=== PATIENT | female | born 1950 | race Hispanic/Latino ===

== ENCOUNTER 2017-12-02 18:08 | Emergency (ER) | payer MEDICARE ==
[2017-12-02] MEDS ORDERED: Bacitracin 500 Units/gm Oint Foilpak UD TOP ONE (18:48)
[2017-12-02] MEDS ORDERED: Tdap Vaccine 0.5 ml Vial (10-64 yrs) IM ONE ×2 (18:48→18:56)
[2017-12-02] MEDS ORDERED: Bacitracin 500 Units/gm Oint Foilpak UD ONE (18:56)
--- NOTE | 2017-12-02 19:59 | ED PDOC ---
HPI: Headache Time Seen by Provider: 12/02/17 18:25 Chief Complaint (Nursing): Headache Chief Complaint (Provider): headache and back pain History Per: Patient History/Exam Limitations: no limitations Onset/Duration Of Symptoms: Sudden Onset (about 1 hour prior to arrival) Additional Complaint(s): trip and fall on gravelly sidewalk, landed on RIGHT side, reporting swelling and wounds to her RIGHT face and RIGHT hand. Denies LOC/Nause/vomiting/ weakness. Reporting pain to back, possible exacerbation of an already existing back condition. Denies urine or bowel incontinence or retention. Unsure of her last tetanus vaccine. PMD Dr Bentley Past Medical History Reviewed: Historical Data, Nursing Documentation, Vital Signs Vital Signs: Last Vital Signs Temp 98.2 F 12/02/17 18:12 Pulse 103 H 12/02/17 18:12 Resp 16 12/02/17 18:12 BP 153/67 H 12/02/17 18:12 Pulse Ox 97 12/02/17 18:12 - Medical History PMH: HTN, Hypercholesterolemia, Hypothyroidism - Surgical History Surgical History: Appendectomy, Tonsillectomy - Family History Family History: States: Unknown Family Hx - Social History Current smoker - smoking cessation education provided: No - Immunization History Hx Tetanus Toxoid Vaccination: No Hx Influenza Vaccination: No Hx Pneumococcal Vaccination: No - Home Medications Home Medications: Ambulatory Orders Medication Instructions Recorded [place] Thyroid 45 mg DAILY 02/18/14 Clindamycin [Cleocin] 300 mg PO QID 10 Days cap 07/21/15 Cephalexin [Keflex] 500 mg PO BID #14 capsule 01/29/16 Clindamycin [Cleocin] 300 mg PO TID #30 cap 01/29/16 Prednisone 40 mg PO DAILY #8 tablet 01/29/16 - Allergies Allergies/Adverse Reactions: Allergies Allergy/AdvReac Type Severity Reaction Status Date / Time nitrofurantoin Allergy SHORTNESS Verified 12/02/17 18:27 [From Macrobid] OF BREATH nitrofurantoin Allergy SHORTNESS Verified 12/02/17 18:27 macrocrystalline OF BREATH [From Macrobid] Penicillins Allergy RASH Verified 12/02/17 18:27 Sulfa (Sulfonamide Allergy REDNESS Verified 12/02/17 18:27 Antibiotics) Iodinated Contrast- Oral and AdvReac ANAPHYLAXIS Verified 12/02/17 18:27 IV Dye [Iodinated Contrast Media - IV Dye] Review of Systems ROS Statement: Except As Marked, All Systems Reviewed And Found Negative (and as per HPI) Musculoskeletal: Positive for: Back Pain, Hand Pain, Leg Pain Skin: Positive for: Lesions, Bruising Neurological: Positive for: Headache. Negative for: Weakness, Numbness Physical Exam - Reviewed Nursing Documentation Reviewed: Yes Vital Signs Reviewed: Yes - Physical Exam Appears: Positive for: Non-toxic, No Acute Distress Head Exam: Positive for: NORMOCEPHALIC (RIGHT periorbital superficial abrasions and edema) Skin: Positive for: Warm, Dry Eye Exam: Positive for: EOMI, PERRL ENT: Positive for: Pharynx Is (clear) Neck: Positive for: Painless ROM, Supple Gastrointestinal/Abdominal: Positive for: Soft. Negative for: Tenderness Back: Positive for: Normal Inspection, Other (RIGHT paraspinal thoracic and lumbar ttp). Negative for: Vertebral Tenderness, Decreased ROM Extremity: Positive for: Normal ROM, Other (RIGHT hand: superficial abrasion to ulnar side of hand, clean, FROM, no deformity). Negative for: Capillary Refill Lymphatic: Negative for: Adenopathy Neurologic/Psych: Positive for: Alert. Negative for: Motor/Sensory Deficits - ECG O2 Sat by Pulse Oximetry: 97 Pulse Ox Interpretation: Normal - Other Rad RIGHT hand X-Ray: Interpreted by Me (No fx/dislocation) Lumbar X-Ray: Interpreted by Me (No fx/dislocation) Thoracic X-Ray: Interpreted by Me (No fracture/dislocation) - Progress ED Course And Treament: EXAM: CT Head Without Intravenous Contrast EXAM DATE/TIME: 12/02/2017 6:41 PM CLINICAL HISTORY: 67 years old, female; Injury or trauma; Fall; Initial encounter; Concussion / head injury; Consciousness not specified TECHNIQUE: Axial computed tomography images of the head/brain without intravenous contrast. All CT scans at this facility use one or more dose reduction techniques, viz.: automated exposure control; ma/kV adjustment per patient size (including targeted exams where dose is matched to indication; i.e. head); or iterative reconstruction technique. Coronal and sagittal reformatted images provided and reviewed. COMPARISON: No relevant prior studies available. FINDINGS: Brain: No intracranial hemorrhage. There is global parenchymal volume loss. Periventricular hypoattenuation is likely due to small vessel disease. No evidence of evolved territorial infarct or cerebral edema. No mass effect or midline shift. Ventricles: Prominent ventricles secondary to volume loss. Bones/joints: No acute osseous abnormality. Soft tissues: Right periorbital soft tissue swelling. Sinuses: Visualized paranasal sinuses are clear. Mastoid air cells: Unremarkable as visualized. No mastoid effusion. IMPRESSION: No acute intracranial findings. Thank you for allowing us to participate in the care of your patient. Dictated and Authenticated by: Tera Ivan MD 12/02/2017 7:24 PM Eastern Time ([place] & [place]) EXAM: CT Maxillofacial Without Intravenous Contrast EXAM DATE/TIME: 12/02/2017 6:41 PM CLINICAL HISTORY: 67 years old, female; Injury or trauma; Fall; Initial encounter; Abrasion; Orbit /periorbital; Right; Injury date: 12-02-2017; Injury details: Tripped and fell; Additional info: Head injury TECHNIQUE: Axial computed tomography images of the face without intravenous contrast. All CT scans at this facility use one or more dose reduction techniques, viz.: automated exposure control; ma/kV adjustment per patient size (including targeted exams where dose is matched to indication; i.e. head); or iterative reconstruction technique. COMPARISON: No relevant prior studies available. FINDINGS: Bones/joints: No acute osseous abnormality. Soft tissues: Right periorbital soft tissue swelling. Orbits: Unremarkable. Sinuses: Unremarkable. No air-fluid levels. IMPRESSION: No fracture. Thank you for allowing us to participate in the care of your patient. Dictated and Authenticated by: Tera Ivan MD 12/02/2017 7:27 PM Eastern Time ([place] & [place]) Disposition - Clinical Impression Clinical Impression: Head injury, Multiple contusions, Abrasions of multiple sites Counseled Patient/Family Regarding: Studies Performed, Diagnosis, Need For Followup - Disposition Referrals: Alexa Bentley MD [Medical Doctor] - (FOLLOW UP WITH DR BENTLEY IN 24-48 HOURS FOR REEVALUATION) Disposition: Routine/Home Disposition Time: 20:01 Condition: STABLE Instructions: Minor Head Injury, Taking Care of Bruises, Skin Abrasions
[2017-12-02 20:42] VITALS: BP 137/66; PULSE 82; RESP 20; TEMP 97.6; O2SAT 98
--- NOTE | 2017-12-03 08:18 | RAD ---
HISTORY: head injury COMPARISON: No prior. FINDINGS: BONES: Alignment maintained. No fracture. DISC SPACES: Normal. SOFT TISSUES: Normal. OTHER FINDINGS: None. IMPRESSION: No acute findings related to/accounting for the clinical presentation. Concordant results with the preliminary interpretation rendered by the emergency department physician procedure.
--- NOTE | 2017-12-03 08:25 | RAD ---
PROCEDURE: Radiographs of the Lumbar Spine. One HISTORY: head injury COMPARISON: No prior. FINDINGS: BONES: Normal alignment. No listhesis. No fracture. DISC SPACES: Unremarkable. OTHER FINDINGS: None. IMPRESSION: Unremarkable radiographs of the lumbar spine. Concordant results with the preliminary interpretation rendered by the emergency department physician procedure.
--- NOTE | 2017-12-03 08:26 | RAD ---
PROCEDURE: Left Hand Radiographs. HISTORY: Unspecified hand injury COMPARISON: None. FINDINGS: BONES: Normal. No fracture. JOINTS: Normal. No osteoarthritic changes. SOFT TISSUES: Normal. OTHER FINDINGS: None. IMPRESSION: Normal left hand radiographs. Concordant results with the preliminary interpretation rendered by the emergency department physician procedure.
--- NOTE | 2017-12-03 08:32 | CT ---
PROCEDURE: CT HEAD WITHOUT CONTRAST. HISTORY: Head injury COMPARISON: None available. TECHNIQUE: Axial computed tomography images were obtained through the head/brain without intravenous contrast. Radiation dose: Total exam DLP = 781.54 mGy-cm. This CT exam was performed using one or more of the following dose reduction techniques: Automated exposure control, adjustment of the mA and/or kV according to patient size, and/or use of iterative reconstruction technique. FINDINGS: HEMORRHAGE: No intracranial hemorrhage. BRAIN: There are mild chronic microangiopathic changes. There is no mass, mass effect or abnormal extra-axial fluid collection. There is no territorial infarction. VENTRICLES: There is mild age-related global parenchymal volume loss and proportionate enlargement of the ventricles and cortical sulci. There is nonspecific prominence of bifrontal extra-axial CSF spaces. CALVARIUM: There is no calvarial fracture. There is mild left periorbital soft tissue swelling PARANASAL SINUSES: Predominantly clear. MASTOID AIR CELLS: Predominantly clear. OTHER FINDINGS: None. IMPRESSION: No acute intracranial abnormality. Mild left periorbital soft tissue swelling. Mild chronic microangiopathic changes and mild age-related global parenchymal volume loss. A preliminary report was provided by [facility] services.
--- NOTE | 2017-12-03 08:39 | CT ---
PROCEDURE: CT MAXILLOFACIAL BONES WITHOUT CONTRAST HISTORY: head injury COMPARISON: Rule TECHNIQUE: Contiguous axial CT images of the maxillofacial bones were obtained. Coronal and sagittal reformats were generated. Radiation dose: Total exam DLP = 721.31 mGy-cm. This CT exam was performed using one or more of the following dose reduction techniques: Automated exposure control, adjustment of the mA and/or kV according to patient size, and/or use of iterative reconstruction technique. FINDINGS: NASAL BONES: Unremarkable. ORBITS: Unremarkable. PARANASAL SINUSES/ MASTOIDS: Clear. MAXILLA: Unremarkable. MANDIBLE/ TEMPOROMANDIBULAR JOINTS: Unremarkable. SKULL BASE: Unremarkable. TEMPORAL BONES: Middle ears and mastoid grossly unremarkable. OTHER FINDINGS: None. IMPRESSION: No acute fracture or other significant pathologic process. Concordant results (preliminary interpretation) provided by [facility]. Procedure Completed: 19:03 Preliminary ([facility]) Report: Dictated and Authenticated: 19:27 Final Interpretation:
== END 2017-12-02 21:00 | disposition home or self-care (01) ==
LOC: H.ER 18:08
DX: S09.90XA Unspecified injury of head, initial encounter (principal); T14.8XXA Other injury of unspecified body region, initial encounter; W01.0XXA Fall on same level from slipping, tripping and stumbling without subsequent striking against object, initial encounter; I10 Essential (primary) hypertension; E78.00 Pure hypercholesterolemia, unspecified; Z88.0 Allergy status to penicillin; E03.9 Hypothyroidism, unspecified; Z23 Encounter for immunization